=== PATIENT | male | born 1975 | race Hispanic/Latino ===

== ENCOUNTER 2019-12-27 11:34 | Emergency (ER) | payer SELFPAY ==
[~2019-12-27] VITALS: Ht 167.6 cm; Wt 81.6 kg
[2019-12-27] MEDS ORDERED: MORPHINE SULFATE INJ 4 MG/ML INJ 1ML IV STA ×2 (11:53→16:41)
[2019-12-27] MEDS ORDERED: ONDANSETRON HCL INJ 2MG/ML 2ML 2 MG/ML VIAL IV STA (11:53)
[2019-12-27] MEDS ORDERED: DIPHTH/TETANUS/ACEL. PERTUSSIS 0.5 ML SYR IM ONE (12:00)
[2019-12-27] MEDS ORDERED: SODIUM CHLORIDE 0.9% 1000ML 1,000 ML IV SCH (12:00)
[2019-12-27] MEDS ORDERED: SODIUM CHLORIDE 0.9% 1000ML 1,000 ML ONE (12:21)
[2019-12-27] MEDS ORDERED: TETANUS/DIPHTHERIA TOX ADULT 0.5 ML SYR ONE (12:22)
[2019-12-27] MEDS ORDERED: ONDANSETRON HCL INJ 2MG/ML 2ML 2 MG/ML VIAL ONE (12:22)
[2019-12-27] MEDS ORDERED: MORPHINE SULFATE INJ 4 MG/ML INJ 1ML ONE ×2 (12:22→16:28)
--- NOTE | 2019-12-27 13:05 | Diagnostic Imaging Report ---
Femur right CPT code: 43745 Indication: Laceration Technique: AP and lateral views of right femur obtained Comparison: None Findings: No evidence of fracture, dislocation, or focal osseous lesion. Soft tissue laceration in the upper lobe right thigh without radiopaque foreign body IMPRESSION: No osseous injury or radiopaque foreign body in the soft tissues. Signed by: Dr. Kary Hylton MD on 12/27/2019 1:01 PM
[2019-12-27] MEDS ORDERED: CEFAZOLIN SOD 1 GM/NS 50ML 50 ML IV ONE ×2 (13:15→13:30)
[2019-12-27] MEDS ORDERED: CEFAZOLIN SOD 1 GM VIAL IV SCH (13:15)
--- NOTE | 2019-12-27 13:24 | Diagnostic Imaging Report ---
Hand Complete CPT code: 26807 Indication:Laceration with power saw Technique: Three views of the left hand obtained Comparison: None. Findings: Distal radius and ulna appear intact. Carpal bones appear generally well aligned. Metacarpals are intact. Expansion of the middle phalanx of the third digit may be secondary to remote intra-articular injury, particularly on the lateral image and acute fracture is not visualized. Mild ulnar angulation of the third digit at the proximal IP joint. There is narrowing of the proximal and distal IP joints of this digit and small osteophytes at the base of the middle phalanx. Soft tissue laceration along the radial border of the third digit extending from the distal IP joint to the tip. There are multiple punctate radiopaque foreign bodies surrounding the third digit from the base of the middle phalanx to the tip. Digits 1, 2, 4, and 5 are intact and normal in morphology. IMPRESSION: Soft tissue laceration of the distal third digit. Multiple radiopaque foreign bodies in the third digit from the proximal IP joint to the tip. Remote post traumatic changes and degenerative changes of the middle phalanx third digit. No acute fractures are appreciated. Signed by: Dr. Kary Hylton MD on 12/27/2019 1:21 PM
[2019-12-27] MEDS ORDERED: LIDOCAINE HCL 1% LOCAL INJ 20 ML VIAL ONE ×2 (16:25→18:02)
--- NOTE | 2019-12-27 16:40 | NUR ---
DR COTO IN ROOM FOR LAC REPAIR.
--- NOTE | 2019-12-27 18:04 | NUR ---
DR COTO COMPLETED SUTURING OF RIGHT THIGH, STARTING ON HAND AT THIS TIME. PT TOLORATING WELL .
--- NOTE | 2019-12-27 19:00 | NUR ---
SUTURING COMPLETED BY DR COTO, ALL WOULD CLEANED WITH NORMAL SALINE AND DRESSING APPLIED. WITH NEOSPORIN ON WOUNDS. PT TOLORATED WELL.
[2019-12-27] MEDS ORDERED: LIDOCAINE HCL 1% LOCAL INJ 20 ML VIAL INJ ONE (19:45)
[2019-12-27] MEDS ORDERED: TYLENOL WITH C1 EACH PO (19:49)
[2019-12-27] MEDS ORDERED: IBUPROFEN400 MG PO (19:50)
[2019-12-27] MEDS ORDERED: IBUPROFEN 400 MG TAB PO ONE (20:00)
[2019-12-27] MEDS ORDERED: HYDROCODONE/APAP 5MG-325MG TAB PO ONE (20:00)
[2019-12-27] MEDS ORDERED: CEPHALEXIN500 MG PO (20:05)
[2019-12-27] MEDS ORDERED: IBUPROFEN 400 MG TAB ONE (20:05)
[2019-12-27] MEDS ORDERED: HYDROCODONE/APAP 5MG-325MG TAB ONE (20:06)
--- NOTE | 2019-12-27 20:07 | NUR ---
USING COMMISSION ASSOCIATE FOR DC INST TO PT AND SPOUSE BY MD AND REGISTRATION.
--- NOTE | 2019-12-27 20:24 | NUR ---
ASSISTANT ART DIRECTOR MALLORY Hart #[id number]
[2019-12-27 20:28] VITALS: BP 170/96
== END 2019-12-27 20:25 | disposition home or self-care (01) ==
LOC: FSED 11:34 → EDBD 11:34 → FSED 20:25
DX: S71.111A Laceration without foreign body, right thigh, initial encounter (principal); S61.211A Laceration without foreign body of left index finger without damage to nail, initial encounter; S61.213A Laceration without foreign body of left middle finger without damage to nail, initial encounter; S61.215A Laceration without foreign body of left ring finger without damage to nail, initial encounter; W29.3XXA Contact with powered garden and outdoor hand tools and machinery, initial encounter; Y99.0 Civilian activity done for income or pay
CPT/HCPCS: 13132; 12034; 12001; 73130; 73552; 80053; 85025; 90471; 90714; 99284; J0690; J2001; J2270; J2405; J7030

== ENCOUNTER 2019-12-29 16:08 | Emergency (ER) | payer SELFPAY ==
[~2019-12-29] VITALS: Ht 167.6 cm; Wt 81.6 kg
[~2019-12-29 16:08] MED LIST: CEPHALEXIN500 MG PO; IBUPROFEN400 MG PO; TYLENOL WITH C1 EACH PO
--- OUTSIDE RECORDS SUMMARY | 2019-12-29 16:12 | XMS REPORT ---
[facility] Address Unknown Phone Unavailable Care Team Providers Care Equipment Services Associate Name Role Phone Ana COTO Unavailable Unavailable Payers Payer Name Policy Type Policy Number Effective Date Expiration Date Problems This patient has no known problems. Allergies, Adverse Reactions, Alerts Allergy Name Allergy Type Status Severity Reaction(s) Onset Date Inactive Date Treating Clinician Comments No Known Drug Allergies DA Active U 2018-12-26 00:00:00 No Known Allergies DA Active U 2018-12-23 00:00:00 Medications This patient has no known medications. Results Test Description Test Time Test Comments Text Results Atomic Results Result Comments HAND 3 VIEW [facility] 2019-12-27 13:15:00 [place] [address] Patient Name: NAHOMY SANDERS MR #: [id number] : 1975 Age/Sex: 44/M Req #: [id number] Adm Physician: Ordered by: VIKTORIYA COTO MD Report #: [id number] Location: [facility] Room/Bed: Procedure: [id number] [facility] Exam Date: Exam Time: REPORT STATUS: Signed Hand Complete CPT code: 82290 Indication:Laceration with power saw Technique: Three views of the left hand obtained Comparison: None. Findings: Distal radius and ulna appear intact. Carpal bones appear generally well aligned. Metacarpals are intact. Expansion of the middle phalanx of the third digit may be secondary to remote intra-articular injury, particularly on the lateral image and acute fracture is not visualized. Mild ulnar angulation of the third digit at the proximal IP joint. There is narrowing of the proximal and distal IP joints of this digit and small osteophytes at the base of the middle phalanx. Soft tissue laceration along the radial border of the third digit extending from the distal IP joint to the tip. There are multiple punctate radiopaque foreign bodies surrounding the third digit from the base of the middle phalanx to the tip. Digits 1, 2, 4, and 5 are intact and normal in morphology. IMPRESSION: Soft tissue laceration of the distal third digit. Multiple radiopaque foreign bodies in the third digit from the proximal IP joint to the tip. Remote post traumatic changes and degenerative changes of the middle phalanx third digit. No acute fractures are appreciated. Signed by: Dr. Kary Baker MD on 12/27/2019 1:21 PM Dictated By: KARY BAKER MD 1321 Transcribed By: DANA on 12/27/19 1321 COPY TO: VIKTORIYA COTO MD F[facility] 2019-12-27 13:01:00 [place] [address] Patient Name: NAHOMY SANDERS MR #: [id number] : 1975 Age/Sex: 44/M Req #: [id number] Adm Physician: Ordered by: VIKTORIYA COTO MD Report #: [id number] Location: [facility] Room/Bed: Procedure: [id number] HOPD/FEMUR 2 VIEW RT - HOPD Exam Date: Exam Time: REPORT STATUS: Signed Femur right CPT code: 84813 Indication: Laceration Technique: AP and lateral views of right femur obtained Comparison: None Findings: No evidence of fracture, dislocation, or focal osseous lesion. Soft tissue laceration in the upper lobe right thigh without radiopaque foreign body IMPRESSION: No osseous injury or radiopaque foreign body in the soft tissues. Signed by: Dr. Kary Baker MD on 12/27/2019 1:01 PM Dictated By: KARY BAKER MD 130 Transcribed By: DANA on 12/27/19 130 COPY TO: VIKTORIYA COTO MD CBC W/AUTO DIFF 2019-10-05 05:24:00 WHITE BLOOD CELL (test code=WBC) 8.29 x10 3/uL 4.5-11.0 RED BLOOD CELL (test code=RBC) 2.67 x10 6/uL 4.00-5.60 HEMOGLOBIN (test code=HGB) 8.8 g/dL 12.5-16.9 HEMATOCRIT (test code=HCT) 24.7 % 37.5-50.7 MEAN CELL VOLUME (test code=MCV) 92.5 fL 81.0-99.0 MEAN CELL HGB (test code=MCH) 33.0 pg 27.0-33.0 MEAN CELL HGB CONCETRATION (test code=MCHC) 35.6 g/dL 33.0-37.0 RED CELL DISTRIBUTION WIDTH CV (test code=RDW) 11.8 % 11.5-14.5 RED CELL DISTRIBUTION WIDTH SD (test code=RDW-SD) 38.5 fL 37.0-54.0 PLATELET COUNT (test code=PLT) 167 x10 3/uL 150-400 MEAN PLATELET VOLUME (test code=MPV) 10.0 fL 7.0-9.0 NEUTROPHIL % (test code=NT%) 61.7 % 56.0-77.0 IMMATURE GRANULOCYTE % (test code=IG%) 0.5 % 0.0-2.0 LYMPHOCYTE % (test code=LY%) 28.6 % 14.0-32.0 MONOCYTE % (test code=MO%) 7.5 % 4.8-9.0 EOSINOPHIL % (test code=EO%) 1.3 % 0.3-3.7 BASOPHIL % (test code=BA%) 0.4 % 0.0-2.0 NUCLEATED RBC % (test code=NRBC%) 0.0 % 0-0 NEUTROPHIL # (test code=NT#) 5.12 x10 3/uL 2.0-7.6 IMMATURE GRANULOCYTE # (test code=IG#) 0.04 x10 3/uL 0.00-0.03 LYMPHOCYTE # (test code=LY#) 2.37 x10 3/uL 1.0-3.8 MONOCYTE # (test code=MO#) 0.62 x10 3/uL 0.1-0.8 EOSINOPHIL # (test code=EO#) 0.11 x10 3/uL 0.0-0.2 BASOPHIL # (test code=BA#) 0.03 x10 3/uL 0.0-0.2 NUCLEATED RBC # (test code=NRBC#) 0.00 x10 3/uL 0.0-0.1 MANUAL DIFF REQUIRED (test code=MDIFF) NO BASIC METABOLIC [id number] 05:20:00* Test Item Value Reference Range Comments SODIUM (test code=NA) 139 mEq/L 134-147 POTASSIUM (test code=K) 3.4 mEq/L 3.4-5.0 CHLORIDE (test code=CL) 106 mEq/L 100-108 CARBON DIOXIDE (test code=CO2) 25 mEq/L 21-33 ANION GAP (test code=GAP) 11 0-20 GLUCOSE (test code=GLU) 115 mg/dL 70-110 BLOOD UREA NITROGEN (test code=BUN) 10 mg/dL 7-18 GLOMERULAR FILTRATION RATE (test code=GFR) 105.5 95-105 Units of measure=ml/min/1.73 m2 CREATININE (test code=CREAT) 0.8 mg/dL 0.6-1.3 CALCIUM (test code=CA) 7.3 mg/dL 8.0-10.5 CREATINE KINASE (CK)2019-10-05 05:20:00* Test Item Value Reference Range Comments CREATINE KINASE (CK) (test code=CK) 137 35-232 Result is in INTERNATIONAL UNITS/LITER THYROID STIMULATING [id number] 05:20:00* Test Item Value Reference Range Comments THYROID STIMULATING HORMONE (test code=TSH) 8.84 0.42-5.47 Results in tonio-International Units/mL LACTIC ACID 2ND [id number] 17:00:00* Test Item Value Reference Range Comments LACTIC ACID 2ND REPEAT (test code=LACT2) 2.5 mmol/L 0.4-1.9 DRUGS OF ABUSE SCREEN [id number] 14:33:00* Test Item Value Reference Range Comments URN COCAINE (test code=COCAURN) NEGATIVE NEGATIVE URN CANNABINOIDS (test code=CANNABURN) NEGATIVE NEGATIVE URN AMPHETAMINE (test code=AMPHETURN) NEGATIVE NEGATIVE URN BARBITURATE (test code=BARBITURN) NEGATIVE NEGATIVE URN BENZODIAZEPINE (test code=BENZOURN) NEGATIVE NEGATIVE Cut-off value:200 ng/mL URN OPIATES (test code=OPIATURN) POSITIVE NEGATIVE Cut-off value:2000 ng/mL URN PHENCYCLIDINE (PCP) (test code=PHENCURN) NEGATIVE NEGATIVE Cutoffs:Barbiturates 200 ng/mLBenzodiazepines 200 ng/mLTHC Cannabinoids 50 ng/mLOpiates(Morphine) 2000 ng/mLAmphetamine 1000 ng/mLCocaine 300 ng/mLPCP phencyclidine 25 ng/mL Unconfirmed screening results shouldnot be used for non-medical purposes. DRUGS OF ABUSE SCREEN [id number] 14:18:00* Test Item Value Reference Range Comments URN COCAINE (test code=COCAURN) NEGATIVE NEGATIVE URN CANNABINOIDS (test code=CANNABURN) NEGATIVE NEGATIVE URN AMPHETAMINE (test code=AMPHETURN) NEGATIVE NEGATIVE URN BARBITURATE (test code=BARBITURN) NEGATIVE NEGATIVE URN BENZODIAZEPINE (test code=BENZOURN) NEGATIVE NEGATIVE Cut-off value:200 ng/mL URN OPIATES (test code=OPIATURN) NEGATIVE URN PHENCYCLIDINE (PCP) (test code=PHENCURN) NEGATIVE NEGATIVE Cutoffs:Barbiturates 200 ng/mLBenzodiazepines 200 ng/mLTHC Cannabinoids 50 ng/mLOpiates(Morphine) 2000 ng/mLAmphetamine 1000 ng/mLCocaine 300 ng/mLPCP phencyclidine 25 ng/mL Unconfirmed screening results shouldnot be used for non-medical purposes. LACTIC ACID [id number] 13:33:00* Test Item Value Reference Range Comments LACTIC ACID REPEAT (test code=LACTR) 3.3 mmol/l 0.4-1.9 UA RFLX MICR CULT IF [id number] 10:12:00* Test Item Value Reference Range Comments UA COLOR (test code=COLU) YELLOW YEL/STRAW UA APPEARANCE (test code=APPU) SL CLOUDY CLEAR UA GLUCOSE DIPSTICK (test code=DGLUU) NEGATIVE NEGATIVE UA BILIRUBIN DIPSTICK (test code=BILU) NEGATIVE NEGATIVE UA KETONE DIPSTICK (test code=KETU) TRACE NEGATIVE UA SPECIFIC GRAVITY (test code=SGU) 1.015 1.005-1.030 UA BLOOD DIPSTICK (test code=YOANNA) NEGATIVE NEGATIVE UA PH DIPSTICK (test code=ELISE) 5.0 5.0-7.0 UA PROTEIN DIPSTICK (test code=PROU) NEGATIVE NEGATIVE UA UROBILINIOGEN DIPSTICK (test code=URO) 0.2 mg/dL 0.2-1.0 UA NITRITE DIPSTICK (test code=ANTELMO) NEGATIVE NEGATIVE UA LEUKOCYTE ESTERASE DIPSTICK (test code=LEUU) NEGATIVE NEGATIVE UA WBC (test code=WBCU) 0-3 WBC/HPF 0-3 UA RBC (test code=RBCU) 4-10 RBC/HPF 0-3 UA WBC NO REFLEX (test code=WBCUCL) 0-3 WBC/HPF 0-3 UA BACTERIA (test code=BACU) TRACE /HPF NONE SEEN UA SQUAMOUS CELLS (test code=SQU) 0-5 /HPF NONE SEEN UA CALCIUM OXALATE CRYSTALS (test code=CAOXU) TRACE /HPF NONE SEEN UA HYALINE CAST (test code=HYALU) >20 /LPF NONE SEEN UA MUCUS (test code=MUCU) 1+ /LPF NONE SEEN Indication for culture: Sev. Sepsis-no other srcSpecimen Description: CLEAN CATCHLACTIC [id number] 09:40:00* Test Item Value Reference Range Comments LACTIC ACID (test code=LACT) 4.7 mmol/L 0.4-1.9 - CT C-SPINE W/O [id number] 09:19:00 Name: NAHOMY SANDERS [facility] [place] : 1975 Age/S: 44 / M [address] [place] [address] Unit #: [id number] Loc: [place] [address] Phys: AviPaul WISDOM Acct: [id number] Dis Date: Status: REG ER PHONE #: [phone] Exam Date: 10/04/2019 0832 FAX #: [phone] Reason: NECK PAIN EXAMS: CPT CODE: [id number] CT C-SPINE W/O CONT 79754 Patient: NAHOMY SANDERS. : 1975; Age: 44 years; Gender: Male. MR: [id number]. Ordering physician: Paul Cárdenas DO. CT CERVICAL SPINE WITHOUT CONTRAST. HISTORY: Neck pain status post injury. COMPARISON: None. FINDINGS: Computed tomography of the cervical spine was performed utilizing contiguous transaxial sections without the administration of intravenous or myelographic contrast. Coronal and sagittal reformatted images were obtained. All CT scans at this location are performed using dose optimization technique as appropriate to a performed exam including the following: -Automated exposure control. -Adjustment of mA and/or KV according to patient's size (this includes techniques or standardized protocols for targeted exams where dose is matched to indication/reason for exam; i.e. extremities or head). -Use of iterative reconstruction technique. -Total DLP: 297.30 mGy-cm The cervicovertebral bodies are normal in height and alignment without evide nce of fractures or spondylolisthesis. Mild degenerative changes noted cau sing varying degrees of multilevel mild to moderate central canal and neur al foraminal stenosis without definitive cord or exiting nerve root imping ement. The prevertebral soft tissue is unremarkable. The C1-C2 articulatio n is within normal limits. Lung apices demonstrate left apical fiona cified granuloma. IMPRESSION: 1. No cervical spine fr acture or spondylolisthesis. 2. Mild degenerative changes caus ing varying degrees of multilevel mild to moderate central canal and byron ral foraminal stenosis without definitive cord or exiting nerve root imp ingement. SL: [id number] PAGE 1 Signed Report (CONTINUED) Name: NAHOMY SANDERS [place] : 1975 Age/S: 44 / M [address] [place] [address] Unit #: [id number] Loc: [place] [address] Phys: Paul Cárdenas Acct: [id number] Dis Date: St atus: REG ER PHONE #: [phone] Exam Howard e: 10/04/2019 0832 FAX #: [phone] Reason: NECK PA IN EXAMS: CPT CODE: [id number] CT C-SPINE W/O CONT 17311 <Continued> at 0919 Reported and signed by: Tip Paulino M.D. CC: Paul Cárdenas DO Technologist:AMBER Tello CTDI: DLP: Trnscb Date/Time: 10/04/2019 (918) [email or web address] Orig Print D/T: S: 10/04/2019 (921) PAGE 2 Signed Report - CT HEAD/BRAIN W/O [id number] 08:50:00 Name: NAHOMY SANDERS [place] : 1975 Age/S: 44 / M [address] [place] [address] Unit #: [id number] Loc: [place] [address] Phys: Justina Cárdenas mmpadmini Acct: [id number] Di s Date: Status: REG ER PHONE #: Exam Date: 10/04/2019 0832 FAX #: Reason: HEADACHE EXAMS: CPT CODE: [id number] CT HEAD/BRAIN W/O CONT 19809 Patient: NAHOMY SANDERS. : 1975; Age: 44 years; Gender: Male. MR: [id number]. O [facility] physician: Paul Cárdenas DO. CT HEAD WITHOUT INT RAVENOUS CONTRAST: HISTORY: Head injury with headache. COMPARISON: None. FINDINGS: Computed tomography of the head was performed utilizing contiguous transaxial sections from the skull base to the vertex without the administration of intravenous contrast. C oronal and sagittal reformatted images were obtained. All CT scans at this location are performed using dose optimization technique as appropriate to a performed exam including the following: -Automated expos ure control. -Adjustment of mA and/or KV according to patient's size (this includes techniques or standardized protocols for targeted exams where do se is matched to indication/reason for exam; i.e. extremities or head). -Use of iterative reconstruction technique. -Total DLP: 472.16 mGy-cm The ventricles, cortical sulci and basilar cisterns are normal in appearance. Old focal left parietal depressed fracture defor mity noted. Left posterior scalp soft tissue hematoma and emphysem a noted secondary to scalp laceration. There is no evidence of midline shift, mass lesion, intraparenchymal hemorrhage, acute infarcti on, extra-axial collection or skull fracture. The posterior fossa is unremarkable. The partially visualized orbits and masto id air cells are unremarkable. Partially imaged dependent fluid within lef t maxillary sinus. IMPRESSION: PAGE 1 Signed Report (CONTINUED) Name: NAHOMY SANDERS [facility] : 1975 Age/S: 44 / M [address] [place] [address] Unit #: [id number] Loc: [place] [address] Phys: Paul Cárdenas DO Acct: [id number] Dis Date: Status: REG ER PHONE #: [phone] Exam Date: 10/04/2019 0832 FAX #: [phone] Reason: HEADACHE EXAMS: CPT CODE: [id number] CT HEAD/BRAIN W/O CONT 29230 <Continued> 1. No acute intracranial pathology. 2. Left posterior scalp soft tissue hematoma and emphysema secondary to scalp laceration. 3. Partially imaged dependent fluid within left maxillary sinus. SL: [id number] at 0850 Reported and signed by: Tip Paulino M.D. CC: Paul Cárdenas DO Technologist:AMBER Tello CTDI: DLP: Trnscb Date/Time: 10/04/2019 (0850) Juan [email or web address] Orig Print D/T: S: 10/04/2019 (0853) PAGE 2 Signed Report BASIC METABOLIC [id number] 08:34:00* Test Item Value Reference Range Comments SODIUM (test code=NA) 134 mEq/L 134-147 POTASSIUM (test code=K) 3.7 mEq/L 3.4-5.0 CHLORIDE (test code=CL) 100 mEq/L 100-108 CARBON DIOXIDE (test code=CO2) 17 mEq/L 21-33 ANION GAP (test code=GAP) 21 0-20 GLUCOSE (test code=GLU) 178 mg/dL 70-110 BLOOD UREA NITROGEN (test code=BUN) 13 mg/dL 7-18 GLOMERULAR FILTRATION RATE (test code=GFR) 73.1 95-105 Units of measure=ml/min/1.73 m2 CREATININE (test code=CREAT) 1.1 mg/dL 0.6-1.3 CALCIUM (test code=CA) 7.8 mg/dL 8.0-10.5 HEPATIC FUNCTION [id number] 08:34:00* Test Item Value Reference Range Comments TOTAL PROTEIN (test code=PROT) 7.0 g/dL 6.4-8.2 ALBUMIN (test code=ALB) 3.60 g/dL 3.4-5.0 BILIRUBIN TOTAL (test code=BILT) 0.6 MG/DL <1.5 BILIRUBIN DIRECT (test code=BILD) 0.20 MG/DL 0.0-0.30 BILIRUBIN INDIRECT (test code=BILIND) 0.40 MG/DL SGOT/AST (test code=AST) 92 IUnit/L 15-37 SGPT/ALT (test code=ALT) 99 IUnit/L 15-65 ALKALINE PHOSPHATASE TOTAL (test code=ALKP) 85 IUnit/L 20-125 CREATINE KINASE (CK)2019-10-04 08:34:00* Test Item Value Reference Range Comments CREATINE KINASE (CK) (test code=CK) 187 35-232 Result is in INTERNATIONAL UNITS/LITER [id number] 08:34:00* Test Item Value Reference Range Comments TROPONIN-I (test code=TROPI) 0.015 ng/mL 0.000-0.045 Negative: <=0.045 Positive: >=0.046 Correlation with serial results, other cardiac markers andclinical findings is necessary to determine the clinicalsignificance of this result. Results using different methodologies should not be comparedto one another as quantitative results may vary by method. [id number] 08:34:00* Test Item Value Reference Range Comments ALCOHOL (test code=ALC) 0.035 G/dL <0.003 Ethyl Alcohol Interpretation: 0.100 gm/dL - Legally Intoxicated 0.300-0.400 gm/dL - Severely Intoxicated >0.400 gm/dL - Potentially LethalResults are for Medical purposes only, and not for Legal orEmployment evaluation purposes. PROTHROMBIN [id number] 08:30:00* Test Item Value Reference Range Comments PROTHROMBIN TIME PATIENT (test code=PTP) 11.9 SECONDS 9.3-12.9 INTERNATIONAL NORMAL RATIO (test code=INR) 1.1 0.8-1.2 TARGET INR BY INDICATION Indication INR1. Prophylaxis of venous thrombosis 2.0 - 3.0 (orthopedic surgery), Prophylaxis of venous thrombosis (other than high-risk surgery), Treatment of Deep Vein Thrombosis/Pulmonary Embolism, Prevention of systemic embolism - Tissue heart valves, Acute Myocardial Infarction (to prevent systemic embolism), Valvular heart disease, Atrial Fibrillation, Bileaflet mechanical valve in aortic position.2. Mechanical prosthetic valves (high risk), 2.5 - 3.5 Presence of Lupus Anticoagulant or Antiphospholipid Antibodies, Prevention of systemic embolism - Acute Myocardial Infarction (to prevent recurrent infarct). THROMBOPLASTIN TIME [id number] 08:30:00* Test Item Value Reference Range Comments THROMBOPLASTIN TIME PARTIAL (test code=PTT) 25.8 Seconds 25.0-39.5 Therapeutic Range: 50.4 - 88.3 Seconds Effective 12/17/2018 CBC W/AUTO [id number] 08:23:00* Test Item Value Reference Range Comments WHITE BLOOD CELL (test code=WBC) 25.84 x10 3/uL 4.5-11.0 RED BLOOD CELL (test code=RBC) 3.88 x10 6/uL 4.00-5.60 HEMOGLOBIN (test code=HGB) 12.8 g/dL 12.5-16.9 HEMATOCRIT (test code=HCT) 35.7 % 37.5-50.7 MEAN CELL VOLUME (test code=MCV) 92.0 fL 81.0-99.0 MEAN CELL HGB (test code=MCH) 33.0 pg 27.0-33.0 MEAN CELL HGB CONCETRATION (test code=MCHC) 35.9 g/dL 33.0-37.0 RED CELL DISTRIBUTION WIDTH CV (test code=RDW) 11.7 % 11.5-14.5 RED CELL DISTRIBUTION WIDTH SD (test code=RDW-SD) 38.5 fL 37.0-54.0 PLATELET COUNT (test code=PLT) 331 x10 3/uL 150-400 MEAN PLATELET VOLUME (test code=MPV) 10.6 fL 7.0-9.0 NEUTROPHIL % (test code=NT%) 86.7 % 56.0-77.0 IMMATURE GRANULOCYTE % (test code=IG%) 0.9 % 0.0-2.0 LYMPHOCYTE % (test code=LY%) 8.5 % 14.0-32.0 MONOCYTE % (test code=MO%) 3.7 % 4.8-9.0 EOSINOPHIL % (test code=EO%) 0.0 % 0.3-3.7 BASOPHIL % (test code=BA%) 0.2 % 0.0-2.0 NUCLEATED RBC % (test code=NRBC%) 0.0 % 0-0 NEUTROPHIL # (test code=NT#) 22.39 x10 3/uL 2.0-7.6 IMMATURE GRANULOCYTE # (test code=IG#) 0.24 x10 3/uL 0.00-0.03 LYMPHOCYTE # (test code=LY#) 2.19 x10 3/uL 1.0-3.8 MONOCYTE # (test code=MO#) 0.96 x10 3/uL 0.1-0.8 EOSINOPHIL # (test code=EO#) 0.01 x10 3/uL 0.0-0.2 BASOPHIL # (test code=BA#) 0.05 x10 3/uL 0.0-0.2 NUCLEATED RBC # (test code=NRBC#) 0.00 x10 3/uL 0.0-0.1 MANUAL DIFF REQUIRED (test code=MDIFF) NO - XR CHEST 1 [id number] 08:00:00 FAX: Paul Steel DO [phone] [place]: St: PRE Name: NAHOMY MORENO [facility] Karishma [place]illa : [birth year] Age/S: 44/M [address] [place] [address] Unit #: [id number] Loc: [place] [address] Phys: Paul Cárdenas DO Acct: [id number] Dis Date: Status: PRE ER PHONE #: [phone] Exam Date: 10/04/2019 0747 FAX #: [phone] Reason: CHEST PAIN EXAMS: CPT CODE: [id number] XR CHEST 1 V 08560 Patient: NAHOMY SANDERS. : ; Age: 44 years; Gender: Male. MR: [id number]. Ordering p hysician: Paul Cárdenas DO. PORTABLE CHEST AP: HI STORY: Chest pain status post injury. COMPARISON: None. FINDINGS: Portable frontal view of the chest was obtained. The lungs are clear bilaterally. The cardiomediastinal silhouette and pulmonary v asculature are unremarkable. The partially visualized upper abdomen is unr emarkable. IMPRESSION: No acute disease in the chest. SL: [id number] at 0800 Reported and signed by: Tip Paulino M.D. CC: Paul Cárdenas DO Technologist: Maria Esther Johnson RT(R) Trn scrd Date/Time/By: 10/04/2019 (0800) : By: Juan [email or web address] Orig Print D/T: S : 10/04/2019 (0803) PAGE 1 Signed Report - XR PELVIS 09/04 [id number] 07:59:00 FAX: Paul Steel DO [phone] [place]: St: PRE Name: NAHOMY MORENO [facility] [place] : [birth year] Age/S: 44/M [address] [place] [address] Unit #: [id number] Loc: [place] [address] Phys: Paul Cárdenas DO Acct: [id number] Dis Date: Status: PRE ER PHONE #: [phone] Exam Date: 10/04/2019 0747 FAX #: [phone] Reason: PELVIC PAIN EXAMS: CPT CODE: [id number] XR PELVIS 1/2 VIEWS 19892 Patient: NAHOMY SANDERS. : ; Age: 44 years; Gender: Male. MR: [id number]. Ordering p hysician: Paul Cárdenas DO. Pelvis one view. HISTO RY: Pelvic pain status post injury. COMPARISON: None. FINDINGS: Frontal view of the pelvis demonstrates well-preserved joint s paces without hip pelvic fracture. Soft tissue is unremarkable. IMPRESSION: Unremarkable pelvis. SL: [id number] at 0759 Reported and signed by: Tip Paulino M.D. CC: Paul Cárdenas DO Technologist: RT Kelsea(R) Trnscrd Date/Time/By: 10/04/2019 (0759) : By: Tashi [email or web address] Orig Print D/T: S: 10/04/2019 (0802) FRANK APODACA 1 Signed Report COMPREHENSIVE METABOLIC [id number] 05:53:00* Test Item Value Reference Range Comments SODIUM (test code=NA) 135 mmol/l 134.0-147.0 POTASSIUM (test code=K) 3.8 mmol/L 3.6-5.2 CHLORIDE (test code=CL) 99 mmol/l 98.0-107.0 CARBON DIOXIDE (test code=CO2) 25.7 mmol/l 21.0-33.0 ANION GAP (test code=GAP) 14.1 0-20 GLUCOSE (test code=GLU) 153 mg/dl 70.0-110.0 BLOOD UREA NITROGEN (test code=BUN) 13 mg/dl 7.0-18.0 CREATININE (test code=CREAT) 0.87 mg/dL 0.60-1.30 GFR NON BLACK (test code=GFRNONBLACK) 102 mL/min 95-105 GFR BLACK (test code=GFRBLACK) 124 mL/min 115-127 TOTAL PROTEIN (test code=PROT) 7.7 GM/DL 6.0-8.1 ALBUMIN (test code=ALB) 3.1 gm/dL 3.2-4.7 CALCIUM (test code=CA) 8.9 mg/dl 8.0-10.5 BILIRUBIN TOTAL (test code=BILT) 0.5 mg/dl 0.0-1.0 SGOT/AST (test code=AST) 46 Units/L 15.0-37.0 SGPT/ALT (test code=ALT) 85 Units/L 12.0-78.0 ALKALINE PHOSPHATASE TOTAL (test code=ALKP) 154 Units/L 50.0-136.0 [id number] 05:53:00* Test Item Value Reference Range Comments MAGNESIUM (test code=MAG) 1.9 mg/dl 1.8-2.4 CBC W/AUTO [id number] 05:33:00* Test Item Value Reference Range Comments WHITE BLOOD CELL (test code=WBC) 10.5 K/mm3 4.5-11.0 RED BLOOD CELL (test code=RBC) 4.30 M/mm3 4.40-5.90 HEMOGLOBIN (test code=HGB) 14.0 gm/dL 13.0-17.0 HEMATOCRIT (test code=HCT) 41.2 % 36.0-48.0 MEAN CELL VOLUME (test code=MCV) 95.8 UM3 80.0-94.0 MEAN CELL HGB (test code=MCH) 32.6 UUG 25.5-32.5 MEAN CELL HGB CONCETRATION (test code=MCHC) 34.0 gm/dL 29.0-35.5 RED CELL DISTRIBUTION WIDTH (test code=RDW) 11.7 % 11.5-15.0 RED CELL DISTRIBUTION WIDTH SD (test code=RDW-SD) 40.1 fL 34.8-50.2 PLATELET COUNT (test code=PLT) 374 K/mm3 150-400 MEAN PLATELET VOLUME (test code=MPV) 10.3 fl 7.4-10.4 NEUTROPHIL % (test code=NT%) 86.2 % 49.0-76.0 IMMATURE GRANULOCYTE % (test code=IG%) 0.6 % 0.0-0.4 LYMPHOCYTE % (test code=LY%) 8.2 % 23.0-38.0 MONOCYTE % (test code=MO%) 4.9 % 1.0-10.0 EOSINOPHIL % (test code=EO%) 0.0 % 1.0-5.0 BASOPHIL % (test code=BA%) 0.1 % 0.0-1.0 NEUTROPHIL # (test code=NT#) 9.0 K/mm3 2.4-6.3 IMMATURE GRANULOCYTE # (test code=IG#) 0.06 x10 3/uL 0.00-0.07 LYMPHOCYTE # (test code=LY#) 0.9 K/mm3 1.2-4.0 MONOCYTE # (test code=MO#) 0.5 K/mm3 0.0-0.6 EOSINOPHIL # (test code=EO#) 0.0 K/MM3 0.0-0.7 BASOPHIL # (test code=BA#) 0.0 K/mm3 0.0-0.2 URIC [id number] 13:01:00* Test Item Value Reference Range Comments URIC ACID (test code=URIC) 5.0 mg/dl 2.6-7.2 - MRI LW JNT W/O CONT [id number] 11:44:00 FAX: Lana Pantoja [phone] [place]: St: ADM Name: NAHOMY MORENO [facility] : [birth year] Age/S: 43/[facility] [address] [facility]: [id number] Loc: E213 [place], [place] Phys: [place] [address] Acct: [id number] Dis Date: Status: ADM IN PHONE #: [phone] Exam Date: 12/27/2018 0930 FAX #: [phone] Reason: PAIN IN SWELLING OF THE RIGHT LOWER LEG EXAMS: CPT CODE: [id number] [place] JNT [place] [id number] REASON FOR EXAM: Right leg pain and swelling, history of gout, no trauma. MRI of the right ank le. Multiplanar T1 and T2 fat-sat/STIR images are obtained at the ankle. There is a mild to moderate joint effusion present. BE simple. B fatimah structures around the ankle mortise appear to be intact with no edema. Subtalar joint appropriate. Soft tissue edema found mildly over the dorsum of the foot and around the ankle but no fluid like areas are seen for abscess. The plantar aponeurosis area shows small amount of fluid and edema present in the muscle groups and plantar surface fascial layers but no abscess. The fluid is mild. Ligamentous structures around the ankle intact. Achilles tendon normal. Medial and lateral tendon groups intact. IMPRESSION: No findings of abscess formation. No evid ence of marrow edema for infection. Small joint effusion at the ankle. Both subcutaneous and deep plantar inflammatory changes or palmer ma without abscess. MRI of the knee and upper tibia and fibula. Multiplanar T1 and fat-suppressed T2/STIR sequences around the knee include the uppe r tibia and fibula. A large suprapatellar joint effusion seen with synechia present. No filling defects for loose bodies however. No evidence of Duran's cyst. Marrow signal homogeneous. Patellar and ext ensor tendons intact. Cruciate ligaments and menisci grossly preserved. Cartilage without any obvious defects. Patellar alig nment intact. Patellar cartilage preserved. There is some palmer ma in the posterior lateral knee possibly in the lateral head of the gas trocnemius The femoral condyle. No fluid accumulation for infection. T iny amount of deep fascial fluid. No evidence of tear, distinctly. PAGE 1 Signed Report (CONTIN UED) FAX: Lana Pantoja [phone] [place]: St: ADM----- Name : NAHOMY SANDERS [facility] : Age/S: 43/M [address] [facility] Unit #: [id number] Loc: [address] [place], [place]: [place] [address] Acct: [id number] Dis Date : Status: ADM IN PHONE #: Exam Date: 12/27/2018 0930 FAX #: Reason: PAIN IN SWELLING OF THE RIGHT LOWER LEG EXAMS: CPT CODE: [id number] [place] J[place] [address] <Continued> IMPRESSION: Large suprapatellar joint effusion without obvious cause. Ligamentous structures, tendons appear to be intact. No marrow edema or large cartilaginous defects. There may be subtle edema in the upper most aspect of the lateral head of the gastrocnemius possibly some muscle strain/edema. Location: U19 at 1144 Reported and signed by: Malcolm Pimentel M.D. CC: Reena Rock MD Technologist: FRAN PATHAK Trnscrd Date/Time/By: 12/27/2018 (1144) : By: Juan PabloINTER-COMMUNITY [facility] PAGE 2 Signed Report FAX: Lana Pantoja [phone] [place]: St: ADM Name: NAHOMY SANDERS [facility] : 1975 Age/S: 43/M [address] [facility] Unit #: [id number] Loc: [address] [place], [place]: [place] [address] Acc t: [id number] Dis Date: Status: ADM IN PHONE #: [phone] Exam Date: 12/27/2018 09 FAX #: [phone] Reason: PAIN IN SWELLING OF THE RIGHT LOWER LEG EXAMS: CPT CODE: [id number] MRI LW JNT W/[place] [id number] <Continued > Orig Print D/T: S: 12/27/2018 (0309) PAGE 3 Signed Report - MRI LOW EXT W/O CONT [id number] 11:44:00 FAX: Dominic Ariza [phone] [place]: St: ADM FAX: Lana Pantoja [phone] Name: NAHOMY SANDERS [facility] : 1975 Age/S: 43/M [address] [facility] Unit #: [id number] Loc: [address] [place], [place] Phys: Dominic Pittman [address] Acct: [id number] Dis Date: Status: ADM IN PHONE #: [phone] Exam Date: 12/27/2018 09 FAX #: [phone] Reason: Pain and swelling EXAMS: CPT CODE: [id number] MRI L[place] EXT W/[place] [id number] REASON FOR EXAM: Right leg pain and swelling, history of gout, no trauma. MRI of the right ankle. Multiplanar T1 and T2 fat-sat/STIR images are obtained at the ankle. There is a mild to moderate joint effusion present. BE simple. Bony structures around the ankle mortise appear to be intact with no edema. Subtalar joint appropr iate. Soft tissue edema found mildly over the dorsum of the foot and arou nd the ankle but no fluid like areas are seen for abscess. The plantar ap oneurosis area shows small amount of fluid and edema present in the muscle groups and plantar surface fascial layers but no abscess. The fluid is m ild. Ligamentous structures around the ankle intact. Achilles ten don normal. Medial and lateral tendon groups intact. IMPR ESSION: No findings of abscess formation. No evidence of marrow edema f or infection. Small joint effusion at the ankle. Both subcuta neous and deep plantar inflammatory changes or edema without abscess. MRI of the knee and upper tibia and fibula. Multiplanar T1 and fat-suppressed T2/STIR sequences around the knee include the upper tibia and fibula. A large suprapatellar joint effusion seen with synechia present. No filling defects for loose bodies however. No evidence of Duran's c yst. Marrow signal homogeneous. Patellar and extensor tendons intact. Cruciate ligaments and menisci grossly preserved. Cartilage without any obvious defects. Patellar alignment intact. Patellar cartil age preserved. There is some edema in the posterior lateral kn ee possibly in the lateral head of the gastrocnemius The femoral condyle. No fluid accumulation for infection. Tiny amount of deep fas cial fluid. No evidence of tear, distinctly. PAGE 1 Signed Report (CONTINUED) FAX: Dominic Ariza [phone] [place]: St: ADM FAX: Lana Pantoja [phone] ---- Name: NAHOMY SANDERS [facility] : 1975 Age/S: 43/M [address] [facility] Unit #: [id number] Loc: [address] [place], [place] Phys: Dominic Zhong [address] Acct: [id number] Dis Date: Status: ADM IN PHONE # : [phone] Exam Date: 12/27/2018 0930 FAX #: Reason: Pain and swelling EXAMS : CPT CODE: [id number] MRI L[place] EXT W/[place] [address] <Continued> IMPRESSION: Large suprapatellar joint effusion without obvious cause. Ligamentous structures, tendons appear to be intact. No marrow edema or large cartilaginous defects. There may be subtle edema in the upper most aspect of the lateral head of the gastrocnemius possibly some muscle strain/edema. Location: U19 at 1144 Reported and signed by: Malcolm Pimentel M.D. CC: Dominic MARIE; Reena Rock MD Technologist: FRAN PATHAK Trnscrd Date/Time/By: 12/27/2018 (3906) : By: Juan PabloINTER-COMMUNITY [facility] PAGE 2 Signed Report FAX: Dominic Ariza [phone] [place]: St: ADM FAX: Lana Pantoja [phone] --- Na me: NAHOMY SANDERS [facility] : 0 1975 Age/S: 43/M [address] [facility] Unit #: [id number] Loc: [address] [place], [place] Phys: Brian Pittman [address] Acct: [id number] Dis Da te: Status: ADM IN PHONE #: Exam Date: 12/27/2018 0930 FAX #: Reason: Pain and swelling EXAMS: CPT CODE: [id number] MRI LOW EXT W/[place] [id number] <Continued> Orig Print D/T: S: 12/27/2018 (2032) PAGE 3 Signed Report COMPREHENSIVE METABOLIC [id number] 05:52:00* Test Item Value Reference Range Comments SODIUM (test code=NA) 133 mmol/l 134.0-147.0 POTASSIUM (test code=K) 4.0 mmol/L 3.6-5.2 CHLORIDE (test code=CL) 95 mmol/l 98.0-107.0 CARBON DIOXIDE (test code=CO2) 32.0 mmol/l 21.0-33.0 ANION GAP (test code=GAP) 10.0 0-20 GLUCOSE (test code=GLU) 93 mg/dl 70.0-110.0 BLOOD UREA NITROGEN (test code=BUN) 13 mg/dl 7.0-18.0 CREATININE (test code=CREAT) 0.99 mg/dL 0.60-1.30 GFR NON BLACK (test code=GFRNONBLACK) 88 mL/min 95-105 GFR BLACK (test code=GFRBLACK) 106 mL/min 115-127 TOTAL PROTEIN (test code=PROT) 7.6 gm/dL 6.4-8.2 ALBUMIN (test code=ALB) 3.2 gm/dl 3.2-4.7 CALCIUM (test code=CA) 8.6 mg/dl 8.0-10.5 BILIRUBIN TOTAL (test code=BILT) 0.8 mg/dl 0.0-1.0 SGOT/AST (test code=AST) 43 Units/L 15.0-37.0 SGPT/ALT (test code=ALT) 83 Units/L 12.0-78.0 ALKALINE PHOSPHATASE TOTAL (test code=ALKP) 137 Units/L 50.0-136.0 Comments to Systems Planner: Patient is currently in the ED waiting on a bedLIPID PROFILE (CORONARY RISK)2018-12-27 05:52:00* Test Item Value Reference Range Comments TRIGLYCERIDES (test code=TRIG) 88 mg/dl 40.0-150.0 CHOLESTEROL (test code=CHOL) 145 mg/dl 0.0-200.0 CHOLESTEROL/HDL RATIO (test code=CHOLHDL) 4.0 RATIO HDL CHOLESTEROL (test code=HDL) 36 mg/dl 30.0-60.0 LIPOPROTEIN LDL (test code=LDL) 100 mg/dl 70-130 Comments to Systems Planner: Patient is currently in the ED waiting on a [id number] 05:52:00* Test Item Value Reference Range Comments MAGNESIUM (test code=MAG) 2.1 mg/dl 1.8-2.4 Comments to Systems Planner: Patient is currently in the ED [facility]AUTO [id number] 05:39:00* Test Item Value Reference Range Comments WHITE BLOOD CELL (test code=WBC) 8.3 K/mm3 4.5-11.0 RED BLOOD CELL (test code=RBC) 4.28 M/mm3 4.40-5.90 HEMOGLOBIN (test code=HGB) 14.0 gm/dL 13.0-17.0 HEMATOCRIT (test code=HCT) 41.9 % 36.0-48.0 MEAN CELL VOLUME (test code=MCV) 97.9 UM3 80.0-94.0 MEAN CELL HGB (test code=MCH) 32.7 UUG 25.5-32.5 MEAN CELL HGB CONCETRATION (test code=MCHC) 33.4 gm/dL 29.0-35.5 RED CELL DISTRIBUTION WIDTH (test code=RDW) 11.9 % 11.5-15.0 RED CELL DISTRIBUTION WIDTH SD (test code=RDW-SD) 43.1 fL 34.8-50.2 PLATELET COUNT (test code=PLT) 299 K/mm3 150-400 MEAN PLATELET VOLUME (test code=MPV) 10.5 fl 7.4-10.4 NEUTROPHIL % (test code=NT%) 66.1 % 49.0-76.0 IMMATURE GRANULOCYTE % (test code=IG%) 1.0 % 0.0-0.4 LYMPHOCYTE % (test code=LY%) 20.1 % 23.0-38.0 MONOCYTE % (test code=MO%) 11.0 % 1.0-10.0 EOSINOPHIL % (test code=EO%) 1.4 % 1.0-5.0 BASOPHIL % (test code=BA%) 0.4 % 0.0-1.0 NEUTROPHIL # (test code=NT#) 5.5 K/mm3 2.4-6.3 IMMATURE GRANULOCYTE # (test code=IG#) 0.08 x10 3/uL 0.00-0.07 LYMPHOCYTE # (test code=LY#) 1.7 K/mm3 1.2-4.0 MONOCYTE # (test code=MO#) 0.9 K/mm3 0.0-0.6 EOSINOPHIL # (test code=EO#) 0.1 K/MM3 0.0-0.7 BASOPHIL # (test code=BA#) 0.0 K/mm3 0.0-0.2 Comments to Systems Planner: Patient is currently in the ED waiting on a bedCOMPREHENSIVE METABOLIC [id number] 10:33:00* Test Item Value Reference Range Comments SODIUM (test code=NA) 129 mmol/l 134.0-147.0 POTASSIUM (test code=K) 4.0 mmol/L 3.6-5.2 CHLORIDE (test code=CL) 92 mmol/l 98.0-107.0 CARBON DIOXIDE (test code=CO2) 27.0 mmol/l 21.0-33.0 ANION GAP (test code=GAP) 14.0 0-20 GLUCOSE (test code=GLU) 96 mg/dl 70.0-110.0 BLOOD UREA NITROGEN (test code=BUN) 12 mg/dl 7.0-18.0 CREATININE (test code=CREAT) 1.05 mg/dL 0.60-1.30 GFR NON BLACK (test code=GFRNONBLACK) 82 mL/min 95-105 GFR BLACK (test code=GFRBLACK) 100 mL/min 115-127 TOTAL PROTEIN (test code=PROT) 8.6 gm/dL 6.4-8.2 ALBUMIN (test code=ALB) 3.7 gm/dl 3.2-4.7 CALCIUM (test code=CA) 9.0 mg/dl 8.0-10.5 BILIRUBIN TOTAL (test code=BILT) 1.4 mg/dl 0.0-1.0 SGOT/AST (test code=AST) 45 Units/L 15.0-37.0 SGPT/ALT (test code=ALT) 95 Units/L 12.0-78.0 ALKALINE PHOSPHATASE TOTAL (test code=ALKP) 116 Units/L 50.0-136.0 PROTHROMBIN [id number] 10:30:00* Test Item Value Reference Range Comments PROTHROMBIN TIME PATIENT (test code=PTP) 12.8 SECONDS 9.9-12.8 INTERNATIONAL NORMAL RATIO (test code=INR) 1.1 0.89-1.14 THE INR IS TO BE USED ONLY FOR MONITORING ORAL ANTICOAGULANTTHERAPY. THE FOLLOWING ARE SUGGESTED RANGES FROM THEAMERICAN COLLEGE OF CHEST PHYSICIANS:INDICATION INR VALUEPROPHYLAXIS OF VENOUS THROMBOSIS (ORTHOPEDIC SURGERY) 2.0 - 3.0PROPHYLAXIS OF VENOUS THROMBOSIS (OTHER THAN HIGH-RISK SURGERY) 2.0 - 3.0TREATMENT OF DEEP VEIN THROMBOSIS OR PULMONARY EMBOLISM 2.0 - 3.0PREVENTION OF SYSTEMIC EMBOLISM TISSUE HEART VALVES 2.0 - 3.0 ACUTE MYOCARDIAL INFARCTION (TO PREVENT SYSTEMIC EMBOLISM) 2.0 - 3.0 ACUTE MYOCARDIAL INFARCTION (TO PREVENT RECURRENT INFARCT) 2.5 - 3.0 VALVULAR HEART DISEASE 2.0 - 3.0 ATRIAL FIBRILATION 2.0 - 3.0BILEAFLET MECHANICAL VALVE IN AORTIC POSITION 2.0 - 3.0MECHANICAL PROSTHETIC VALVES (HIGH RISK) 2.5 - 3.5PRESENCE OF LUPUS ANTICOAGULANT OR ANTIPHOSPHOLIPID ANTIBODIES 2.5 - 3.5 THROMBOPLASTIN TIME [id number] 10:30:00* Test Item Value Reference Range Comments THROMBOPLASTIN TIME PARTIAL (test code=PTT) 34.10 SECONDS 25.86-36.07 [facility] Therapeutic Range - APTT of 55.8-85.4 secondscorrelates with plasma heparin concentration of 0.2-0.4 u/mL New range effective - 10/29/2016 COMPREHENSIVE METABOLIC [id number] 10:29:00* Test Item Value Reference Range Comments SODIUM (test code=NA) 129 mmol/l 134.0-147.0 POTASSIUM (test code=K) 4.0 mmol/L 3.6-5.2 CHLORIDE (test code=CL) 92 mmol/l 98.0-107.0 CARBON DIOXIDE (test code=CO2) 27.0 mmol/l 21.0-33.0 ANION GAP (test code=GAP) 14.0 0-20 GLUCOSE (test code=GLU) mg/dl 70.0-110.0 BLOOD UREA NITROGEN (test code=BUN) mg/dl 7.0-18.0 CREATININE (test code=CREAT) mg/dL 0.60-1.30 GFR NON BLACK (test code=GFRNONBLACK) mL/min 95-105 GFR BLACK (test code=GFRBLACK) mL/min 115-127 TOTAL PROTEIN (test code=PROT) gm/dL 6.4-8.2 ALBUMIN (test code=ALB) gm/dl 3.2-4.7 CALCIUM (test code=CA) mg/dl 8.0-10.5 BILIRUBIN TOTAL (test code=BILT) mg/dl 0.0-1.0 SGOT/AST (test code=AST) Units/L 15.0-37.0 SGPT/ALT (test code=ALT) Units/L 12.0-78.0 ALKALINE PHOSPHATASE TOTAL (test code=ALKP) Units/L 50.0-136.0 - XR TIBIA/FIBULA 2 V [id number] 10:29:00 FAX: Telma Mccoy MD [place]: St: REG Name: Ayden NAHOMY MORALES [facility] : [birth year] Age/S: 43/M [address] [facility] Unit #: [id number] Loc: [address] Phys: [place] [address] Acct: [id number] Dis Date: Status: REG ER PHONE #: [phone] Exam Date: 12/26/2018 1015 FAX #: [phone] Reason: PAIN EXAMS: CPT CODE: [id number] XR TIBIA/FIBULA 2 [place] RT [id number] EXAM: Right tib-fib x-ray INDICATION: PAIN, LOCATION: [facility] - C3 CO MPARISON: None TECHNIQUE: 2 VIEWS, AP and lateral views of the rig ht tib-fib DISCUSSION: Bony contours and osseous de tail well demonstrated. Joint spaces and alignment within normal limits as visualized. There is no evident of fracture. There is no dislocation, or significant bony variation. Soft tissues within normal limits without foreign body. Small soft tissue ca lcification reside within the anterior aspect of the tibia is seen likely represent phlebolith. IMPRESSION: 1. Unremark able right tib-fib. at 1029 Reported and signed by: Leobardo Prado M.D. CC: Telma Childs MD Technologist: ISIDRO SHIRLEY Trnscrd Date/Time/By: 12/26/2018 ( 029) : By: Juan PabloHPD PAGE 1 Signed Report FAX: Telma Mccoy MD Ca mpus: EM St: REG Name: NAHOMY SANDERS [facility] : 1975 Age/S: 43/M [address] [facility] Unit #: [id number] Loc: [address] Phys: [place] [address] Acct: [id number] Dis Date: Status: REG ER PHONE #: [phone] Exam Date: 12/26/2018 1015 FAX #: [phone] Reason: PAIN EXAMS: CPT CODE: [id number] XR TIBIA/FIBULA 2 [place] [id number] <Continued> Orig Print D/T: S: 12/26/2018 (1033) PAGE 2 Signed Report CBC W/AUTO [id number] 10:17:00* Test Item Value Reference Range Comments WHITE BLOOD CELL (test code=WBC) 9.8 K/mm3 4.5-11.0 RED BLOOD CELL (test code=RBC) 4.64 M/mm3 4.40-5.90 HEMOGLOBIN (test code=HGB) 15.4 gm/dL 13.0-17.0 HEMATOCRIT (test code=HCT) 44.4 % 36.0-48.0 MEAN CELL VOLUME (test code=MCV) 95.7 UM3 80.0-94.0 MEAN CELL HGB (test code=MCH) 33.2 UUG 25.5-32.5 MEAN CELL HGB CONCETRATION (test code=MCHC) 34.7 gm/dL 29.0-35.5 RED CELL DISTRIBUTION WIDTH (test code=RDW) 12.0 % 11.5-15.0 RED CELL DISTRIBUTION WIDTH SD (test code=RDW-SD) 41.1 fL 34.8-50.2 PLATELET COUNT (test code=PLT) 305 K/mm3 150-400 MEAN PLATELET VOLUME (test code=MPV) 9.9 fl 7.4-10.4 NEUTROPHIL % (test code=NT%) 68.5 % 49.0-76.0 IMMATURE GRANULOCYTE % (test code=IG%) 0.8 % 0.0-0.4 LYMPHOCYTE % (test code=LY%) 16.9 % 23.0-38.0 MONOCYTE % (test code=MO%) 12.6 % 1.0-10.0 EOSINOPHIL % (test code=EO%) 0.8 % 1.0-5.0 BASOPHIL % (test code=BA%) 0.4 % 0.0-1.0 NEUTROPHIL # (test code=NT#) 6.7 K/mm3 2.4-6.3 IMMATURE GRANULOCYTE # (test code=IG#) 0.08 x10 3/uL 0.00-0.07 LYMPHOCYTE # (test code=LY#) 1.7 K/mm3 1.2-4.0 MONOCYTE # (test code=MO#) 1.2 K/mm3 0.0-0.6 EOSINOPHIL # (test code=EO#) 0.1 K/MM3 0.0-0.7 BASOPHIL # (test code=BA#) 0.0 K/mm3 0.0-0.2 - XR FOOT 3 + V [id number] 19:21:00 FAX: Mila Thornton NP [phone] [place]: St: [facility] FAX: Royal Lakhani MD [phone] Name: NAHOMY SANDERS [facility] : 1975 Age/S: 43/M [address] [facility] Unit #: [id number] Loc: [address] [place], [place]: [place] [address] Acct: [id number] Dis Date: Status: REG ER PHONE #: [phone] Exam Date: 12/23/20181902 FAX #: [phone] Reason: pain and redness EXAMS: CPT CODE: [id number] XR FOOT 3 + V RT [address]00 EXAMINATION: - XR KNEE 1 OR 2 V RT, - XR FOOT 3 + V RT. LOCATION: R16. HISTORY: Pain and redness, gout. COMPARISON: None. FINDINGS/ IMPRESSION: Two views of RIGHT knee demonstrates small suprapatellar joint effusion. No radiographic evidence of acute osseous abnormality. No dislocation. Three views of RIGHT foot demonstrates dorsal soft tissue swelling. No radiographic evidence of acute osseous abnormality. Mild degenerative changes involving first metatarsophalangeal joint. at 1921 Reported and signed by: Jani Nieves M.D. CC: Mila Thornton NP; Royal Hector MD Technologist: SWATHI VELASQUEZ Trnscrd Date/Time/By: 12/23/2018 (1920) : By: Taty .ANS4 PAGE 1 Signed Report FAX: Mila Thornton NP [phone] [place]: St: [facility] FAX: Royal Lakhani MD [phone] Name: NAHOMY SANDERS [facility] : 1975 Age/S: 43/M [address] [facility] Unit #: [id number] Loc: [address] [place], [place]: [place] [address] Acct: [id number] Dis Date: Status: REG ER PHONE #: [phone] Exam Date: 12/23/20181902 FAX #: [phone] Reason: pain and r edness EXAMS: CPT CODE: [id number] XR FOOT 3 + V RT 23765 <Continued> Orig Print D/T: S: 12/23/2018 (1924) PAGE 2 Signed Report - XR KNEE 1 OR 2 V [id number] 19:21:00 FAX: NorbertoJohnMila NP [phone] [place]: St: REG FAX: Royal Lakhani MD [phone] Name: NAHOMY SANDERS [facility] : 1975 Age/S: 43/M [address] [facility] Unit #: [id number] Loc: [address] [place], [place] Phys: Jonh Thorntonabel DIZA [address] Acct: [id number] Dis Date: Status: REG ER PHONE #: [phone] Exam Date: 12/23/2018 1903 FAX #: [phone] Reason: pain and redness EXAMS: CPT CODE: [id number] XR KNEE 1 OR 2 V RT [address] EXAMINATION: - XR KNEE 1 OR 2 V RT, - XR FOOT 3 + V RT. LOCATION: R16. HISTORY: Pain and redness, gout. COMPARISON: None. FINDINGS/ IMPRESSION: Two views of RIGHT knee demonstrates small suprapatellar joint effusion. No radiographic evidence of acute osseous abnormality. No dislocation. Three views of RIGHT foot demonstrates dorsal soft tissue swelling. No radiographic evidence of acute osseous abnormality. Mild degenerative changes involving first metatarsophalangeal joint. at 1921 Reported and signed by: Jani Nieves M.D. CC: Mila Thornton NEON PUMPER; Royal Hector MD Technologist: SWATHI VELASQUEZ Trnncrd Date/Time/By: 12/23/2018 (1920) : By: Juan PabloANS4 PAGE 1 Signed Report FAX: Mila Thornton NP [phone] [place]: St: REG FAX: Royal Lakhani MD [phone] Name: NAHOMY SANDERS [facility] : 1975 Age/S: 43/M [address] [facility] Unit #: [id number] Loc: [address] [place], [place]: [place] [address] Acct: [id number] Dis Date: Status: REG ER PHONE #: [phone] Exam Date: 12/23/2018 1903 FAX #: [phone] Reason: pain and r edness EXAMS: CPT CODE: [id number] XR KNEE 1 OR 2 V RT 64344 <Continued> Orig Print D/T: S: 12/23/2018 (1924) PAGE 2 Signed Report URIC [id number] 18:42:00* Test Item Value Reference Range Comments URIC ACID (test code=URIC) 2.7 mg/dl 2.6-7.2
== END 2019-12-29 16:45 | disposition left against medical advice (07) ==
LOC: FSED 16:08
DX: Z48.01 Encounter for change or removal of surgical wound dressing (principal)

== ENCOUNTER 2020-01-05 17:01 | Emergency (ER) | payer SELFPAY ==
[~2020-01-05] VITALS: Ht 167.6 cm; Wt 81.6 kg
== END 2020-01-05 17:35 | disposition home or self-care (01) ==
LOC: FSED 17:01
DX: Z48.02 Encounter for removal of sutures (principal)
CPT/HCPCS: 99283; S0630

== ENCOUNTER 2020-01-11 12:26 | Emergency (ER) | payer SELFPAY ==
[~2020-01-11] VITALS: Ht 167.6 cm; Wt 90.3 kg
== END 2020-01-11 12:55 | disposition home or self-care (01) ==
LOC: FSED 12:26
DX: Z48.02 Encounter for removal of sutures (principal)
CPT/HCPCS: 99282; S0630